=== PATIENT | female | born 2000 | race Caucasian/White ===

== ENCOUNTER → 2024-01-17 09:17 | Outpatient (BNVA) | payer MEDICAID, SELFPAY | PROVIDERS: Referring Provider Nurse Practitioner; Visit Provider Internal Medicine | DX: R63.4 Abnormal weight loss (principal); E05.90 Thyrotoxicosis, unspecified without thyrotoxic crisis or storm; R11.2 Nausea with vomiting, unspecified | CPT/HCPCS: 36415; 83516; 84439; 84443; 84480; 86376; 86800 ==